=== PATIENT | male | born 1960 | race Caucasian/White ===

== ENCOUNTER 2017-04-13 12:36 | Emergency (ER) | payer MEDICAID, OTHER ==
[2017-04-13 12:40] VITALS: BP_SYST 148
[2017-04-13 13:19] VITALS: BP_SYST 148
== END 2017-04-13 13:18 | disposition home or self-care (01) ==
LOC: SED 12:36
DX: G89.29 Other chronic pain (principal); M54.5 Low back pain
CPT/HCPCS: 99283